=== PATIENT | male | born 1960 | race Caucasian/White ===

== ENCOUNTER 2017-03-17 21:56 | Emergency (ER) | payer BC, OTHER ==
[~2017-03-17] VITALS: Ht 167.6 cm; Wt 81.6 kg
[2017-03-17] MEDS ORDERED: XANAX0.25 MG ORAL (21:57)
[2017-03-17] MEDS ORDERED: LORazepam Inj 2mg/ml 1ml IV ONE (22:30)
[2017-03-17 22:46] VITALS: BP 100/68
[2017-03-17] MEDS ORDERED: MECLIZINE HCL25 MG ORAL (23:26)
--- NOTE | 2017-03-17 23:26 | Emergency Room Report ---
History of Present Illness General Chief Complaint: Generalized Weakness Source: Patient, Family Member, EMS Present Illness HPI Is a 56-year-old male with history anxiety/panic attack. He presents with chief complaint of dizziness and weakness. This occur frequently. He said that the room is spinning around patient he stood up. He did have 2 cups of wine tonight. He felt weak and nauseous. No vomiting. Blood pressure was low when this happened. He's been treated as anxiety/panic attack. Tympanic and Xanax for it. He did not take anything tonight. EMS said his blood pressure was in the systolic of high 80s. She denies any chest pain or loss of consciousness. No recent infection. Allergies: Coded Allergies: No Known Allergies (Unverified , 03/17/17) Patient History Past Medical History: see triage record, old chart reviewed Past Surgical History: other Pertinent Family History: none Social History: Denies: smoking Immunizations: other Reviewed Nursing Documentation: PMH: Agreed, PSxH: Agreed Nursing Documentation-PMH History Of Psychiatric Problem: Yes - ANXIETY Review of Systems Eye: Denies: blurred vision, eye pain ENT: Denies: ear pain, nose congestion, throat swelling Respiratory: Denies: cough, shortness of breath Cardiovascular: Denies: chest pain, palpitations Gastrointestinal: Denies: abdominal pain, diarrhea, nausea, vomiting Musculoskeletal: Denies: back pain, joint pain Skin: Denies: rash Neurological: Denies: headache, numbness Endocrine: Denies: increased thirst, increased urine Hematologic/Lymphatic: Denies: easy bruising All Other Systems: negative except mentioned in HPI Physical Exam Vital Signs Date Time Temp Pulse Resp B/P Pulse Ox O2 Delivery O2 Flow Rate FiO2 03/17/17 21:52 97.9 78 20 104/63 99 Room Air vitals normal Sp02 EP Interpretation: reviewed, normal General Appearance: well appearing, no apparent distress, alert Head: normocephalic, atraumatic Eyes: bilateral eye EOMI, bilateral eye PERRL ENT: hearing grossly normal, normal pharynx Neck: full range of motion, supple, no meningismus Respiratory: chest non-tender, lungs clear, normal breath sounds Cardiovascular #1: regular rate, rhythm, no murmur Gastrointestinal: normal bowel sounds, non tender, no mass, no organomegaly, no bruit, non-distended Musculoskeletal: back normal, gait/station normal, normal range of motion Psychiatric: mood/affect normal Skin: warm/dry Medical Decision Making Diagnostic Impression: Primary Impression: Dizziness Additional Impression: Vertigo ER Course Patient presents with dizziness and vertiginous symptoms. He's been diagnosed with anxiety/panic attack. He may need to see an ENT DrJeancarlos for this. No evidence of TIA or CVA. No evidence of ACS. Will discharge him. Last Vital Signs Date Time Temp Pulse Resp B/P Pulse Ox O2 Delivery O2 Flow Rate FiO2 03/17/17 22:46 97.9 72 19 100/68 99 Room Air Status: improved Disposition: HOME, SELF-CARE Condition: Stable Scripts Meclizine Hcl* (MECLIZINE*) 25 Mg Tablet 25 MG ORAL THREE TIMES A DAY, #30 TAB Prov: SAMARA MEJIA M.D. 03/17/17 Additional Instructions: Followup with your DrJeancarlos in 2-3 days. You may benefit from referral to see ENT DrJeancarlos Return if worse. SAMARA MEJIA M.D. Mar 17, 2017 23:26
[2017-03-17 23:55] VITALS: BP 112/66
== END 2017-03-17 23:55 | disposition home or self-care (01) ==
LOC: EDBD 21:56 → EMR 22:35
DX: R42 Dizziness and giddiness (principal); R11.0 Nausea; Z86.59 Personal history of other mental and behavioral disorders
CPT/HCPCS: 96374; 96375